=== PATIENT | female | born 1995 | race Caucasian/White ===

== ENCOUNTER 2017-04-21 20:16 | Emergency (ER) | payer OTHER ==
[2017-04-21] MEDS ORDERED: Acetaminophen 500 MG TAB ONE (22:35)
--- NOTE | 2017-04-21 23:35 | CT ---
CT BRAIN: Date: 04-21-17 Provided Clinical History: Head pain status post injury. FINDINGS: The ventricular system appears normal in size and morphology. There is no evidence for intracranial h emorrhage or mass effect. Extracranial soft tissues and osseous structures demonstrate no acute findi ngs. IMPRESSION: No evidence for intracranial hemorrhage or mass effect. POS: [facility]
--- NOTE | 2017-04-21 23:36 | CT ---
CT CERVICAL SPINE WITHOUT CONTRAST: Date: 04-21-17 Provided Clinical History: Neck pain status post injury. FINDINGS: There is no evidence for fracture or traumatic subluxation. No prevertebral soft tissue swelling is e vident. The visualized lung apices appear clear. IMPRESSION: No evidence for fracture or traumatic subluxation. POS: [facility]
== END 2017-04-21 23:30 | disposition home or self-care (01) ==
LOC: ERS 20:16
DX: S09.90XA Unspecified injury of head, initial encounter (principal); M54.2 Cervicalgia; V89.2XXA Person injured in unspecified motor-vehicle accident, traffic, initial encounter
CPT/HCPCS: 70450; 72125